=== PATIENT | female | born 1995 | race Caucasian/White ===

== ENCOUNTER 2021-08-13 12:08 | Emergency (ER) | payer OTHER, MEDICAID ==
[2021-08-13 13:57] LABS: HEMOGLOBIN 13.5 gm/dl (12.3-15.3); RED BLOOD COUNT 4.41 M/UL (4.00-5.10); WHITE BLOOD COUNT 9.4 K/UL (4.5-11.0)
[2021-08-13 14:14] LABS: BUN/CREATININE RATIO 5 (0-10)
[2021-08-13] MEDS ORDERED: CEPHALEXIN500 MG PO (15:58)
== END 2021-08-13 16:04 | disposition home or self-care (01) ==
LOC: ER1 12:08
PROVIDERS: Emergency Medicine
DX: O23.41 Unspecified infection of urinary tract in pregnancy, first trimester (principal); Z90.89 Acquired absence of other organs; Z3A.10 10 weeks gestation of pregnancy
CPT/HCPCS: 76815; 80053; 81001; 84702; 85025; 87086; 99284